=== PATIENT | male | born 1970 | race Caucasian/White ===

== ENCOUNTER 2020-04-15 14:43 | Inpatient (IN) | payer BC ==
[~2020-04-15] VITALS: Ht 182.9 cm; Wt 109.7 kg
[2020-04-15] VITALS (11 sets, daily range): BP systolic 119–167; BP diastolic 60–111; PULSE 99–125; TEMP 99.6–103.1
[2020-04-15] MEDS ORDERED: ASPIRIN 81M81 MG/TA2 PO (15:02)
[2020-04-15] MEDS ORDERED: ZYLOPRIM 300MG300 MG PO (15:02)
[2020-04-15] MEDS ORDERED: MOTRIN 800800 MG/TAB PO (16:09)
[2020-04-15] MEDS ORDERED: EPA FISH OIL1 SGL PO (16:10)
[2020-04-15] MEDS ORDERED: MULTIPLE VITAMI1 TA5 PO (16:10)
--- NOTE | 2020-04-15 16:30 | NUR ---
Patient to the Or with Amelie. rounded. Orders ontained. show design supervisor Started Iv to Lac. Lr to gravity. All admissions paperwork complete. Patient had negative Covid swab at [facility]. Patient has low grade temp, aware.
--- NOTE | 2020-04-15 18:55 | NUR ---
PATIENT EATING, UNABLE TO KEEP ARM WITH BP CUFF ON STILL. DENIES CHEST PAIN/SHORTNESS OF BREATH/CHILLING AT THIS TIME.
--- NOTE | 2020-04-15 19:53 | NUR ---
RECEIVED CHANGE OF SHIFT REPORT FROM DAY SHIFT NURSE.
--- NOTE | 2020-04-15 20:23 | NUR ---
SEE VS, TMAX 103.1. INFORMED DR ADRNELL, ORDERS FOR TYLENOL PRN GIVEN. SEE ORDERS.
--- NOTE | 2020-04-15 23:14 | NUR ---
OBSERVED TEMP UP TO 101.4, PATIENT DENIES CHILLING, REPORTS HE FEELS HOT, DENIES CHEST PAIN/SHORTNESS OF BREATH/NAUSEA. INFORMED DR DARNELL OF TEMP WITH TACHYCARDIA, ORDERS FOR IBUPROFEN GIVEN, SEE ORDERS.
[2020-04-16 04:19] VITALS: BP 129/66; PULSE 79; TEMP 97.6
--- NOTE | 2020-04-16 06:58 | NUR ---
CHANGE OF SHIFT REPORT GIVEN TO DAY SHIFT NURSESABINE.
[2020-04-16 08:00] VITALS: BP 111/63; PULSE 73; TEMP 98.8
--- NOTE | 2020-04-16 09:54 | NUR ---
Commercial Loan Assistant met with patient to discuss discharge planning. Patient lives in [place] with his girlfriend, Alia (ph#[phone]) and sees Dr. Montoya for primary care. Patient obtains medications from [facility] with no difficulties. Patient uses a CPAP and no other DME. Patient is independent with ADLS and was observed ambulating the halls independently. Patient does not have Advance Directives and was not interested in designating DPOA-HC at this time. Patient's legal next of kin are his children, Faraz (ph#[phone]) and Siri (ph#[phone]). Patient plans to return home upon discharge. No needs identified at this time.
[2020-04-16 11:15] VITALS: BP 103/56; PULSE 71; TEMP 98.2
[2020-04-16 16:23] VITALS: BP 122/71; PULSE 84; TEMP 98.4
--- NOTE | 2020-04-16 18:31 | NUR ---
Patient resting in bedside recliner at this time. Patient is alert and oriented, answers questions appropriately. Patient has been independent in the room and has ambulated in the halls several times today. Patient has remained afebrile, IVF and antibiotics per order. Patient has c/o pain a few times today, PRN pain medication administered per order. Incisions have remained CDI. Denies further needs, call light within reach.
[2020-04-16 19:52] VITALS: BP 120/68; PULSE 83; TEMP 98.3
--- NOTE | 2020-04-16 21:53 | NUR ---
PT MEDICATED WITH NORCO 1 TAB PO FOR PAIN 5/10.
--- NOTE | 2020-04-16 21:59 | NUR ---
RECEIVED CALL FROM PTS REGARDING PTS HOME MEDS. SHE REPORTS SHE SENT HIS MEDS IN THE BAG SHE BROUGHT TO THE ED. PT REPORTS HE DID TAKE HIS MULTIVITAMIN, ALLOPURINOL AND ASPIRIN TONIGHT WITHOUT ASKING THIS NURSE. HE REPORTS HE SPOKE WITH SEVERAL "NURSES" ALL DAY ABOUT HIS MEDS AND DID NOT GET THEM. REVIEWED HIS HOME MED LIST, THESE HAVE NOT BEEN ADDRESSED BY THE PHYSICIAN. WILL CALL FOR CLARIFICATION TO DR DICKINSON.
--- NOTE | 2020-04-16 22:01 | NUR ---
DR DICKINSON NOTIFIED OF PATIENTS HOME MED LIST AND THAT PT TOOK HIS HOME MEDS ALREADY TONIGHT. DR DICKINSON OKAYS HOME MEDS AT THIS TIME, EXCLUDING MOTRIN.
[2020-04-17] VITALS: BP 124/70; PULSE 83; TEMP 98.7
--- NOTE | 2020-04-17 01:53 | NUR ---
Medicated with [place] 1 tab for pain to right lower incision.
[2020-04-17 04:12] VITALS: BP 126/61; PULSE 98; TEMP 98.3
--- NOTE | 2020-04-17 05:51 | NUR ---
Medicated with [place] 5/325mg 1 tab po now for rt lower incisional pain. Asking for stool softner, Colace given.
[2020-04-17 06:15] LABS: BASO % 0.1 % (0.0-2.0); EOS % 0.2 % (0-4.0); HEMOGLOBIN 12.5 g/dl (13.5-18.0); LYMPH # 0.5 (1.2-3.4); LYMPH % 6.5 % (20.0-51.0); MEAN CELL VOLUME 92 fl (80.0-100.0); MEAN CORPUSCULAR HEMOGLOBIN 31 pg (27.0-31.0); MEAN CORPUSCULAR HGB CONC 34 g/dl (33.0-37.0); MEAN PLATELET VOLUME 9.3 fl (7.4-10.4); MONO # 0.5 (0.1-0.6); MONO % 5.6 % (1.7-9.3); PLATELET COUNT 154 K/mm3 (130-400); REDCELL DISTRIBUTION WIDTH-CV 11.2 % (11.5-14.5)
[2020-04-17 06:16] LABS: HEMATOCRIT 36.9 % (42.0-52.0)
--- NOTE | 2020-04-17 07:17 | NUR ---
PT REPORTS SORE THROAT THIS AM. NO COMPLAINTS OTHERWISE, RESTING IN BED AT BEDSIDE SHIFT REPORT. CALL LIGHT WITHIN REACH, BED IN LOW.
[2020-04-17 07:43] VITALS: BP 119/68; PULSE 94; TEMP 98.5
[2020-04-17] MEDS ORDERED: AMOXICILLIN 8751 TAB PO (07:58)
[2020-04-17] MEDS ORDERED: NORCO 325 MG-51 TAB PO (07:58)
--- NOTE | 2020-04-17 10:03 | NUR ---
THIS NURSE REVIEWED PT EDUCATION AND APPOINTMENTS WITH PT. PT DENIED ANY QUESTIONS. PELLETIZER OPERATOR HELPED PT AMBULATE TO PRIVATE VEHICLE TO DISCHARGE HOME. PT REPORTED SOB THAT IS UNUSUAL FOR HIM PRIOR TO DISCHARGE. THIS NURSE EDUCATED HIM ABOUT COUGHING AND DEEP BREATHING AND WHEN TO NOTIFY PRIMARY CARE PHYSICIAN.
== END 2020-04-17 09:40 | disposition home or self-care (01) | DRG 340 ==
LOC: SURG 14:43
PROVIDERS: ADMIT Surgery
PROC: 0DTJ4ZZ Resection of Appendix, Percutaneous Endoscopic Approach (ICD-10-PCS; principal; 2020-04-15 17:05)
DX: K35.33 Acute appendicitis with perforation, localized peritonitis, and gangrene, with abscess (principal); D72.829 Elevated white blood cell count, unspecified; K59.00 Constipation, unspecified; Z79.82 Long term (current) use of aspirin; Z87.891 Personal history of nicotine dependence; Z88.1 Allergy status to other antibiotic agents
CPT/HCPCS: OP; J0330; J0690; J1100; J1885; J2250; J2405; J2543; J2704; J3010; J7120

== ENCOUNTER → 2020-04-15 | Outpatient (CLI) | payer BC ==
[~2020-04-15] MED LIST: AMOXICILLIN 8751 TAB PO; ASPIRIN 81M81 MG/TA2 PO; EPA FISH OIL1 SGL PO; MOTRIN 800800 MG/TAB PO; MULTIPLE VITAMI1 TA5 PO; NORCO 325 MG-51 TAB PO; ZYLOPRIM 300MG300 MG PO
== END ==
LOC: COL.RAD 12:53
DX: K37 Unspecified appendicitis (principal); K38.8 Other specified diseases of appendix

== ENCOUNTER 2020-04-19 04:07 | Inpatient (IN) | payer BC ==
[~2020-04-19] VITALS: Ht 185.4 cm; Wt 110.5 kg
[2020-04-19 05:54] VITALS: BP 129/70; PULSE 69; TEMP 98.8
[2020-04-19 06:23] VITALS: BP 129/70; PULSE 69; TEMP 98.8
[2020-04-19 07:25] VITALS: BP 186/108; PULSE 70; TEMP 98
--- NOTE | 2020-04-19 07:27 | NUR ---
PT BROUGHT TO RM 349 PER [facility]. COT LOWERED AND PT TRANSFER TO BED BY SELF. RATES PAIN 5-6/10. INT IN LEFT FA. STARTED BY [facility] STAFF. PT VS STABLE. NO TEMP. ABDOMEN FEELS A LITTLE TIGHT. SLIGHTLY TENDER TO PALPATATION.
--- NOTE | 2020-04-19 07:30 | NUR ---
Dr Loredo here to see patient.
--- NOTE | 2020-04-19 09:00 | NUR ---
Patient alert and oriented, answers questions appropriately. See assessment. Abdomen soft, non tender, non distended. Bowel sounds active x4 quads. +Flatus. Recent bowel movement. States has occasional spasms to RLQ. No other c/o at this time.
[2020-04-19 11:31] VITALS: BP 147/77; PULSE 69; TEMP 97.9
--- NOTE | 2020-04-19 13:00 | NUR ---
TYRA completed intake with patient. Patient states that he lives in [place] with friend [phone]. Patient states that he does not utilze any DME and is independent with ADL's. Patient states that his PCP is Dr. Montoya, pharmacy choice is [facility], and that he can afford his medications. Patient states that he does not have anyone appointed as DPOA and does not wish to appoint anyone at this time. Patient states he plans to go back to his home upon DC and does not utilze HH services at this time. TYRA will continue to follow.
[2020-04-19 19:23] VITALS: BP 153/81; PULSE 92; TEMP 98.5
[2020-04-19 23:19] VITALS: BP 119/64; PULSE 81; TEMP 99.3
[2020-04-20] VITALS (12 sets, daily range): BP systolic 128–157; BP diastolic 64–85; PULSE 73–85; TEMP 98.7–99.9
[2020-04-20 06:19] LABS: BASO % 0.2 % (0.0-2.0); EOS # 0.1 (0.0-0.7); EOS % 2.6 % (0-4.0); GRAN # 4.3 (1.4-6.5); HEMOGLOBIN 12.1 g/dl (13.5-18.0); LYMPH # 0.6 (1.2-3.4); LYMPH % 11.5 % (20.0-51.0); MEAN CELL VOLUME 92 fl (80.0-100.0); MEAN CORPUSCULAR HEMOGLOBIN 31 pg (27.0-31.0); MEAN CORPUSCULAR HGB CONC 34 g/dl (33.0-37.0); MEAN PLATELET VOLUME 8.7 fl (7.4-10.4); MONO # 0.4 (0.1-0.6); PLATELET COUNT 198 K/mm3 (130-400); RED BLOOD COUNT 3.87 M/mm3 (4.20-5.60); REDCELL DISTRIBUTION WIDTH-CV 11.2 % (11.5-14.5)
--- NOTE | 2020-04-20 06:30 | NUR ---
Patient has been doing well this shift. He was up walking in the hallways until about 2300. He slept most the night. Minimal complaints of pain. No complaints of nausea. He was asking this am about surgery, explained Dr Loredo will come by to talk to him about it. No other changes at this time. Call light within reach.
[2020-04-20 06:32] LABS: HEMATOCRIT 35.4 % (42.0-52.0)
--- NOTE | 2020-04-20 08:53 | NUR ---
Patient alert and oriented, answers questions appropriately. See assessment. Abdomen soft, non tender, non distended. Bowel sounds active x4 quads. +Flatus. +Bowel movement. No c/o at this time.
--- NOTE | 2020-04-20 10:01 | NUR ---
Initial visit; Patient thanked Legal Services Manager for looking in on him and offering God's blessings.
--- NOTE | 2020-04-20 10:51 | NUR ---
Specimen obtained and placed in specimen container. Specimen labeled.
--- NOTE | 2020-04-20 21:05 | NUR ---
SPOKE WITH DR DARNELL FOR ORDER FOR IBUPROFEN. NEW ORDER RECEIVED AND DOSE OF 600MG GIVEN TO PATIENT. HAS IVF INFUSING TO LEFT FOREARM WITHOUT REDNESS OR SWELLING. LAP SITES X3 TO ABD, NO DRSG AND DRY. HAS BANDAID TO RIGHT ABD WHERE DRAINAGE OF ABSCESS WAS PERFORMED TODAY. INDEPENDENT IN ROOM. REPORTS BM TODAY.
--- NOTE | 2020-04-20 23:11 | NUR ---
PT WALKING IN HALLWAY. REPORTS IBUPROFEN DIDN'T REALLY HELP PAIN. DOES NOT WANT THE NORCO FOR FEAR OF CONSTIPATION.
[2020-04-21 04:05] VITALS: BP 142/82; PULSE 61; TEMP 97.6
--- NOTE | 2020-04-21 06:00 | NUR ---
HAS NOT REQUESTED ANY PAIN MEDS SINCE IBUPROFEN. IVF CONTINUE.
[2020-04-21 07:27] VITALS: BP 155/86; PULSE 76; TEMP 97.9
--- NOTE | 2020-04-21 10:09 | NUR ---
The patient discharged home today, 04/21. He is independent and had no needs.
--- NOTE | 2020-04-21 10:55 | NUR ---
DISCHARGE INSTRUCTIONS PROVIDED TO PT. QUESTIONS ANSWERED. PT LEFT AMBULATORY WITH STAFF.
== END 2020-04-21 10:20 | disposition home or self-care (01) | DRG 921 ==
LOC: SURG 04:56
PROVIDERS: ADMIT Surgery
PROC: 0W9G3ZZ Drainage of Peritoneal Cavity, Percutaneous Approach (ICD-10-PCS; principal; 2020-04-20)
DX: K91.872 Postprocedural seroma of a digestive system organ or structure following a digestive system procedure (principal); Z88.1 Allergy status to other antibiotic agents; Y83.8 Other surgical procedures as the cause of abnormal reaction of the patient, or of later complication, without mention of misadventure at the time of the procedure
CPT/HCPCS: J2250; J2543; J3010; J7030; J7120